=== PATIENT | female | born 1975 | race Caucasian/White ===

== ENCOUNTER 2017-03-03 00:26 | Emergency (ER) | payer OTHER ==
[~2017-03-03] VITALS: Ht 157.5 cm; Wt 53.2 kg
[~2017-03-03 00:26] MED LIST: HYDR-656 PO; TEMA7.5C14 PO
[2017-03-03 00:39] VITALS: BP 146/90; PULSE 82; RESP 20; O2SAT 100
[2017-03-03] MEDS ORDERED: 0.9% Sodium Chloride 1,000 ML IV ONE (01:17)
--- NOTE | 2017-03-03 01:17 | ED.REPORT ---
HPI-Abd Pain F 40 and Over Date of Service Mar 03, 2017 ED Provider: Edward Zhang Pt is a 41 year old female who presents to the ED complaining of abdominal pain onset today. She c/o associated left flank pain, back pain, and difficulty urinating. She denies any other symptoms. Pt reports that she drank cranberry juice prior to arrival. Pt denies a history of kidney stones. Nursing Notes Stated Complaint: ABDOMINAL PAIN Chief Complaint: Female Abdominal Pain Nursing Notes Reviewed: Yes Allergies: Coded Allergies: codeine (Verified Adverse Reaction, Unknown, anxiety, 03/03/17) Scheduled PRN Temazepam (Temazepam) 7.5 Mg Capsule 7.5 MG PO HS PRN PRN For Insomnia hydrOXYzine Hcl (HydrOXYzine Hcl) 25 Mg Tablet 25 MG PO Q6H PRN PRN For Anxiety General Time Seen by MD: :17 Chief Complaint Abdominal pain Hx Obtained From: Patient Arrived By: Walk-in Sudden in Onset?: No Onset Occurred: 5 - 8 hours ago Symptom Duration: Since onset Severity: Current: Moderate Severity: Maximum: Moderate Recent Healthcare: No recent doctor visit, No recent hospitalization Similar Sx Previous: No Past Medical History Past Medical History Psychatric Past Surgical History Denies Family History Father - Kidney stones Smoking History Never Smoker Social History Alcohol Use: Denies alcohol use Drug Use: Denies drug use Other Social History: Good social support Ambulatory Status Independent Review of Systems Constitutional: Denies: Fever Respiratory: Denies: Non-productive cough GI: Reports: Abdominal pain Female: Reports: Dysuria, Flank pain, Urination decreased Musculoskeletal: Reports: Back pain Complete sys rev & neg: except as marked. Physical Exam Vital Signs Vital Signs (First) Date Time Temp Pulse Resp B/P Pulse Ox O2 Delivery O2 Flow Rate FiO2 03/03/17 00:39 36.3 82 20 146/90 100 Room Air Initial VS: Reviewed, Vital signs abnormal Head / Eyes: Atraumatic, Normocephalic Neck: Supple, Full range of motion Extremities: Vascular intact, Neuro intact Skin: Warm, Dry, No cyanosis Neurologic: Alert, Oriented, Nonfocal Psychiatric: Mood/affect normal, Behavior normal, Normal thought content General/Constitutional: Awake, Alert, Cooperative Writhing and pacing. Respiratory / Chest: Atraumatic, Breath sounds NL, Breath sounds = bilat Cardiovascular: Heart rate NL, Regular rhythm, Heart sounds NL Abdomen: Atraumatic, Soft Left lower pelvic pain. Back: Atraumatic, Full range of motion Positive for CVA tenderness. Interpretation & Diagnostics Lab Results Interpretation Result Diagram: 03/03/17 0110 03/03/17 0110 Test 03/03/17 01:10 03/03/17 02:10 White Blood Count 12.0th/mm3 (3.8-10.1) Red Blood Count 4.51mil/mm3 (3.90-5.20) Hemoglobin 14.1g/dL (12.0-15.6) Hematocrit 39.3% (35.0-46.0) Mean Corpuscular Volume 87.1fL (81-100) Mean Corpuscular Hemoglobin 31.3pg (27.0-35.0) Mean Corpuscular Hemoglobin Concent 35.9% (32.0-37.0) Red Cell Distribution Width 12.6% (12.3-15.4) Platelet Count 262bil/L (150-400) Neutrophils (%) (Auto) 72.6% (40-74) Lymphocytes (%) (Auto) 19.6% (14-46) Monocytes (%) (Auto) 6.2% (4-12) Eosinophils (%) (Auto) 1.1% (0-5) Basophils (%) (Auto) 0.2% (0-3) Sodium Level 134mEq/L (134-144) Potassium Level 3.3mEq/L (3.5-5.2) Chloride Level 95mEq/L (97-108) Carbon Dioxide Level 21mmol/L (18-29) Blood Urea Nitrogen 16mg/dL (6-24) Creatinine 0.90mg/dL (0.57-1.00) Estimat Glomerular Filtration Rate 99mL/min (>59) Glucose Level 149mg/dL (60-99) Calcium Level 9.1mg/dL (8.5-10.1) Magnesium Level 1.9mg/dL (1.6-2.6) Total Bilirubin 0.8mg/dL (0.0-1.2) Aspartate Amino Transf (AST/SGOT) 14U/L (0-50) Alanine Aminotransferase (ALT/SGPT) 9U/L (0-32) Alkaline Phosphatase 54U/L (25-150) Total Protein 7.0g/dL (6.4-8.4) Albumin 4.6g/dL (3.4-5.0) Lipase 52U/L (13-60) Hold Sharif Top Tube Received (Received) Urine Color Straw (YELLOW) Urine Appearance Clear (CLEAR,HAZY) Urine pH 5.5 (5.0-8.0) Urine Specific [place] 1.015 (1.003-1.035) Urine Protein Negativemg/dL (NEG,TRACE) Urine Glucose (UA) Negativemg/dL (NEGATIVE) Urine Ketones Negativemg/dL (NEGATIVE) Urine Occult Blood Trace (NEGATIVE) Urine Nitrite Negative (NEGATIVE) Urine Bilirubin Negative (NEGATIVE) Urine Urobilinogen Normalmg/dL (NORMAL) Urine Leukocyte Esterase Negative (NEGATIVE) Urine RBC 0-2/hpf (0-2) Urine WBC 0-5/hpf (0-5) Urine Epithelial Cells Occasional/hpf (NONE-MOD) Urine Crystals None seen (NONE SEEN) Urine Bacteria Few/hpf (NONE-FEW) Urine Hyaline Casts None/lpf (NONE) Urine Granular Casts None seen (NONE SEEN) Urine Waxy Casts None seen (NONE SEEN) Urine Red Blood Cell Casts None seen (NONE SEEN) Urine White Blood Cell Casts None seen (NONE SEEN) Urine Mucus None seen (None Seen) Urine Trichomonas None seen (NONE SEEN) Urine Yeast None (NONE SEEN) Urinalysis Comment None Urine Culture Reflexed Not indicated Lab Results Interpretation: Mildly elevated white blood count, urinalysis is unremarkable. CT Abd / Pelvis Interpretation IMPRESSION: 3 mm distal left ureter stone with moderate left hydronephrosis. Transmitted to the ED at 02:02 by Kobi Fajardo M.D Study type: Abdominal CT IV contrast Interpretation / Wet Read by: Interpret - Radiologist Re-Eval/Medical Decision Med Decision/Clinical Course 41-year-old female who presents with severe left flank pain. IV access was obtained and she was given pain and nausea medicines with partial relief. Labs were unremarkable including a negative urine. CT KUB was done because of her extreme pain and to rule out alternative diagnoses. It did show a 3 mm ureteral stone in the distal ureter with resultant hydronephrosis. She is being discharged home with antinausea medicines. She was given tamsulosin. She will return to the emergency room if she worsens significantly. She will strain all urine and save any stone and discussed this all with her primary PMD. Source of Hx: Old records Re-Evaluation/Progress : Time of Eval: 02:06 )( Re-Eval Abdomen: Soft Patient Status: Condition improved Re-Evaluation/Progress Note: Pt rechecked. Pt reports that she was able to urinate and is feeling slightly better. Informed pt of results and plan for discharge. Pt understands and agrees with plan for discharge. F/U instructions and RTER warnings given. All questions addressed. Counseled Regarding: Diagnosis, Lab results, Need for follow-up, When/why to return to ED Discharge & Departure Primary Impression: Ureterolithiasis Disposition: Home Discharge Condition All VS Reviewed: Yes Condition: Stable Patient Instructions: Renal Colic (ED) Additional Instructions: You have a 3 mm stone near the end of your left ureter. This should pass on its own. Strain your urine to know when the stone passes. Tamsulosin (Flomax) 0.4 mg daily for a few days until the stone passes. Ondansetron (Zofran) 4 mg dissolved early piriform times daily as needed for nausea and vomiting, #4 dispensed. Hydrocodone/acetaminophen 5/325, one or 2 every 4-6 hours as needed for severe pain, #10 dispensed. Use as little of this medication as possible and properly dispose of the remainder when your pain is gone. Call me at [phone] between the hours of 9 PM and 6 AM for the next couple nights of you have any questions or concerns. Referrals: Haroldo Slaughter MD (PCP) Jean Attestation Portions of this note were transcribed by Gaby Malik. I, Dr. Zhang personally performed the history, physical exam and medical decision-making; I reviewed and confirmed the accuracy of the information in the transcribed note. Signed by: Jean Alejo, 03/03/17 and 03:50. copies to: Haroldo Slaughter MD, Todd P DO Mar 03, 2017 01:17 Edward Zhang MD Mar 03, 2017 01:27 Gaby Mccormick Mar 03, 2017 01:34
[2017-03-03] MEDS ORDERED: Ondansetron 2 mg/mL 2 mL Inj ONE (01:18)
[2017-03-03] MEDS ORDERED: HYDROmorphone 0.5 mg/0.5 mL iSecure Syringe ONE (01:19)
[2017-03-03 01:27] LABS: BASOPHILS % (AUTO) 0.2 % (0-3); EOSINOPHILS % (AUTO) 1.1 % (0-5); MONOCYTES % (AUTO) 6.2 % (4-12); Mean Corpuscular Hemoglobin 31.3 pg (27.0-35.0); Mean Corpuscular Volume 87.1 fL (81-100); NEUTROPHILS % (AUTO) 72.6 % (40-74); Platelet Count 262 bil/L (150-400)
[2017-03-03] MEDS: Ondansetron 2 mg/mL 2 mL Inj IVPUSH PRN ×3 (01:30→02:58)
[2017-03-03] MEDS: HYDROmorphone 0.5 mg/0.5 mL iSecure Syringe IVPUSH PRN ×2 (01:30→02:25)
[2017-03-03 02:01] LABS: Magnesium 1.9 mg/dL (1.6-2.6)
[2017-03-03] MEDS ORDERED: _HYDROcodone/APAP 5-325 mg Tablet PO PRN (02:10)
[2017-03-03] MEDS ORDERED: _Ondansetron ODT 4 mg Tablet PO PRN (02:10)
[2017-03-03 02:27] LABS: APPEARANCE,URINE CLEAR (CLEAR,HAZY); COLOR,URINE STRAW (YELLOW); OCCULT BLOOD,URINE TRACE (NEGATIVE); PH,URINE 5.5 (5.0-8.0); UROBILINOGEN,URINE NORMAL (NORMAL)
[2017-03-03 02:34] VITALS: BP 151/89; PULSE 69; RESP 20; O2SAT 100
[2017-03-03 03:02] VITALS: BP 151/89; PULSE 69; RESP 20; O2SAT 100
--- NOTE | 2017-03-03 09:06 | DRSVH ---
PROCEDURE: CT KUB ([id number]) INDICATIONS: left flank pain TECHNIQUE: Noncontrast 5 mm thick sections acquired from the diaphragms to the symphysis. 5 mm thick coronal an d sagittal reformats were then performed. For radiation dose reduction, the following was used: aut omated exposure control, adjustment of mA and/or kV according to patient size. COMPARISON: None. FINDINGS: Image quality: Excellent. Lung bases: Lung bases are clear. Heart size is normal. Urinary system: Both kidneys are normal in size. No kidney stones. No hydronephrosis or perinephri c fat stranding on the right but there is hydronephrosis on the left and hydroureter extending inferi ronnie to an impacted far distal left ureteral stone measuring 3 mm at the posterior margin of the blad kerwin wall. The right ureter appears non-dilated throughout its expected course. Bladder wall thickne ss is normal; no calcified bladder stones. Other solid organs: Liver and spleen are normal in size. Gallbladder appears normal. Pancreas is n ormal in contours. No adrenal nodules. Peritoneum and bowel: Unenhanced bowel loops demonstrate normal wall thickness and caliber. No free fluid or air. Nodes and vessels: No retroperitoneal or mesenteric adenopathy by size criteria. Aorta and inferior vena cava are normal in caliber. Abdominal wall: No ventral hernias. Pelvis: No free pelvic fluid. No inguinal hernias or adenopathy. Bones: No suspicious bony lesions. No vertebral body compression fractures. IMPRESSION: 3 mm far distal left ureteral stone causing left hydronephrosis and hydroureter which is mild to moderate in overall severity. No additional urinary tract stones seen. Several scattered bi lateral pelvic phleboliths also noted. Dictated by: Dante Jay M.D. on 03/03/2017 at 9:01 Approved by: Dante Jay M.D. on 03/03/2017 at 9:04
== END 2017-03-03 03:03 | disposition home or self-care (01) ==
LOC: SED 00:26
DX: N20.1 Calculus of ureter (principal); Z88.5 Allergy status to narcotic agent
CPT/HCPCS: 36415; 74176; 80053; 81000; 81025; 83690; 83735; 85025; 96374; 96375; 99285; J1170; J1885; J2405; J7030